=== PATIENT | male | born 1935 | race American Indian/Alaskan Native ===

== ENCOUNTER 2021-05-27 14:22 | Outpatient (CLI) | payer MEDICARE | END 2021-05-27 14:23 | disposition home or self-care (01) | LOC: LAB 14:22 | PROVIDERS: ATTEND Specialist | DX: G40.219 Localization-related (focal) (partial) symptomatic epilepsy and epileptic syndromes with complex partial seizures, intractable, without status epilepticus (principal) | CPT/HCPCS: 36415; 80175 ==